=== PATIENT | female | born 1990 | race Two or more races ===

== ENCOUNTER → 2024-02-14 | Outpatient (CLI) | payer MEDICAID, SELFPAY ==
--- NOTE | 2024-02-14 11:30 | XR_ITS ---
Examination: Abdomen sonogram, complete Date and time of exam: February 14, 2024 1215 hours INDICATIONS: Upper abdominal pain beginning 2 weeks ago, history cholecystectomy. Technique: Multiple real-time grayscale transabdominal sonographic images of the abdomen have been obtained. Findings: Absent gallbladder Normal common bile duct 0.4 cm Pancreatic head 2.3 cm Aorta mid and distal not enlarged Liver 16.5 cm fatty infiltration no focal liver lesions Normal hepatopedal portal venous flow Patent IVC Right kidney 12.1 x 5.1 x 5.9 cm renal cortex 1.6 cm Left kidney 13.3 x 5.4 x 5.8 cm cortex 2.0 cm Moderate renal parenchymal scar formation No hydronephrosis Spleen 13.6 cm IMPRESSION: Absent gallbladder Normal common bile duct Hepatosplenomegaly Moderate bilateral renal parenchymal scar formation
== END | disposition home or self-care (01) ==
LOC: CDIM 12:04
PROVIDERS: PCP Physician Assistant; Referring Provider Physician Assistant; Visit Provider Physician Assistant
DX: R16.2 Hepatomegaly with splenomegaly, not elsewhere classified (principal); N28.89 Other specified disorders of kidney and ureter; Z90.49 Acquired absence of other specified parts of digestive tract
CPT/HCPCS: 76700